=== PATIENT | female | born 1985 | race Caucasian/White ===

== ENCOUNTER 2021-05-31 08:07 | Emergency (ER) | payer OTHER, SELFPAY ==
[2021-05-31 08:08] VITALS: BP 132/98; PULSE 73; RESP 15; TEMP 35.7; O2SAT 100; BMI 48.4
--- NOTE | 2021-05-31 08:36 | EDS_ITS ---
HPI History of Present Illness Chief Complaint: Headache Informant: patient Narrative Narrative: Patient presents with migraine headache. She has a history of these. She has been on Botox injections every few months that have helped him quite a bit. Her frequency is down. Her last Botox injection was in March. She is coming up on repeat injection. She has had no trauma or injury. No fevers chills. She started with a migraine this morning. It is mostly in the back of the head more than the front. It is more on the right than the left. She did have some flashing lights in her vision prior to it. She is not having any weakness or numbness. She does have photophobia which is typical. She has had very mild nausea. She cannot think of anything that triggered this headache. However, she she has never figured out triggers for her headaches. [facility] Medical History Migraines Home Medications vit [id number] [ Vitamin Tablet] 1 ea PO DAILY 10/02/14 [History Last Taken Unknown] metformin 1,500 mg PO DAILY 10/20/14 [History Last Taken Unknown] ondansetron 4 mg PO Q6H PRN PRN #20 tab 10/20/14 [Rx Last Taken Unknown] Allergy/AdvReac Type Severity Reaction Status Date / Time [place] And Derivatives Allergy Rash Verified 05/31/21 08:09 Fish Containing Products Allergy Anaphylaxis Verified 05/31/21 08:09 ibuprofen Allergy Other Verified 05/31/21 08:09 hydromorphone HCl AdvReac Vomiting Verified 05/31/21 08:09 [From Dilaudid] metoclopramide HCl AdvReac Vomiting Verified 05/31/21 08:09 [From Reglan] Social History Smoking Status: Current every day smoker tobacco type: cigarettes ROS ROS ED Constitutional Constitutional ED: Denies chills or fever(s) Eyes Eyes: Denies blurry vision, change in vision or diplopia ENT ENT ED: Denies rhinorrhea or sore throat Cardiovascular Cardiovascular: Denies palpitations Respiratory/Chest Respiratory/Chest: Denies dyspnea Gastrointestinal Gastrointestinal: Reports nausea; Denies vomiting Genitourinary Genitourinary ED: Denies dysuria Musculoskeletal Musculoskeletal: Denies arthralgias or myalgias Integumentary Denies rash Neurologic Neurologic: Reports headache(s); Denies paresthesias or weakness Psychiatric Psychiatric: Denies anxiety or depression Endocrine Endocrinology: Denies polydipsia or polyuria Hematologic/Lymphatic Hematologic/Lymphatic: Denies easy bleeding or easy bruising Allergic/Immunologic Allergic/Immunologic ED: Denies mouth swelling or urticaria EXAM Physical Exam Const Vital Signs: 05/31/21 08:08 Temperature 96.3 F L Temperature Source Temporal Pulse Rate 73 Respiratory Rate 15 Blood Pressure 132/98 H Blood Pressure Mean 109 Pulse Ox 100 Oxygen Delivery Method Room Air Positive well nourished and well developed Constitutional Narrative: Patient looks calm and comfortable in the room. General Appearance ED: well developed and NAD; Negative for cyanotic or terry phoretic HEENT Reports normocephalic HEENT Narrative: No temporal artery tenderness. No sinus tenderness. No facial asymmetry. atraumatic Eyes PERRL and EOMs intact bilaterally Eyes Narrative: Very mild photophobia. Neck supple Resp normal respiratory effort and clear to auscultation bilaterally Cardio regular rate and regular rhythm GI non-tender Palpation: soft Back/Spine no CVA tenderness Extremity normal to inspection Neuro oriented x3 and no sensory deficits noted Neuro Narrative: Normal strength sensation and coordination throughout. Sensorium / Orientation: awake and alert; Negative for orientation impaired, lethargic or stuporous Motor Exam: strength 5/5 throughout Psych mental status grossly normal Skin Rashes: no rashes MDM MDM MDM Narrative Medical decision making narrative: Patient is rechecked. She was sleeping. She was aroused with voice. She states the headache is much better. She states delores t Benadryl usually works really well for her. We did use Compazine also as she does have some nausea. Both of her symptoms are markedly improved. We discussed reasons to return. Discharge Plan Triage Chief Complaint: Headache ED Provider: Huber Bishop Dx/Rx/DC Orders Clinical Impression: Migraine Instructions: ED, Migraine (Classical) Prescriptions: No Action Vitamin 1 EACH tablet 1 ea PO DAILY RF: 0 metformin 500 MG tablet 1,500 mg PO DAILY RF: 0 ondansetron 4 MG tablet 4 mg PO Q6H PRN PRN (Reason: Nausea) Qty: 20 RF: 0 Primary Care Provider: Care Physician,No Primary Referrals: Helder Recinos DO [STAFF PHYSICIAN] - As Needed Care Physician,No Primary [Primary Care Provider] - Disposition Disposition: Home, Self Care
[2021-05-31] MEDS: DiphenhydrAMINE 50 MG/ML Syringe IV (08:59)
[2021-05-31] MEDS: 0.9% Normal Saline 1,000 ML 999 ML IV (09:00)
[2021-05-31] MEDS: proCHLORPERazine 10 MG/2 ML Vial IV (09:00)
== END 2021-05-31 10:41 | disposition home or self-care (01) ==
PROVIDERS: Emergency Provider Emergency Medicine; Visit Provider Emergency Medicine
DX: G43.909 Migraine, unspecified, not intractable, without status migrainosus (principal); F17.210 Nicotine dependence, cigarettes, uncomplicated; Z79.899 Other long term (current) drug therapy; Z79.84 Long term (current) use of oral hypoglycemic drugs
CPT/HCPCS: 96361; 96374; 96375; 99283; J7030; A4216

== ENCOUNTER 2021-06-21 09:40 | Outpatient (CLI) | payer OTHER, SELFPAY ==
[2021-06-21 12:20] LABS: Absolute Lymphocyte Count 1.68 X10^3/uL (0.83-4.51); Absolute Neutrophil Count 3.8 X10^3/uL (2.0-7.7); Basophil# 0.05 X10^3/uL; Basophil% 0.8 % (0-1); Eosinophil# 0.11 X10^3/uL; Eosinophils% 1.8 % (0-5); Hematocrit 42.3 % (37-47); Hemoglobin 13.7 g/dL (12.0-15.0); Lymphocyte # 1.68 X10^3/ul (0.83-4.51); Lymphocyte % 28.1 % (19-41); Mean Corp Hgb Conc 32.4 g/dL (32-36); Mean Corpuscular Hgb 27.5 pg (27.0-32.0); Mean Corpuscular Volume 84.9 fL (81-99); Mean Platelet Vol. 10.3 fl (6.2-12.0); Monocyte# 0.32 X10^3/uL; Monocyte% 5.4 % (0-10); NRBC Flagged by Analyzer 0 % (0-5); Neutrophil % 63.6 % (47-70); Platelet Count 247 K/mm3 (150-450); RBC Distribution Width CV 14.3 % (11.6-14.6); RBC Distribution Width SD 44.1 fl (35.1-43.9); Red Blood Count 4.98 M/mm3 (4.2-5.4)
[2021-06-21 12:38] LABS: Vitamin D,25 Hydroxy 12.8 ng/mL
[2021-06-21 13:11] LABS: ALB/GLOB Ratio 0.9 RATIO (0.9-2.4); AST(SGOT) 12 U/L (15-37); Alanine Aminotransfer ALT/SGPT 38 U/L (13-56); Albumin, Serum 3.5 g/dL (3.2-5.0); Alkaline Phosphatase 72 U/L (45-117); Anion Gap 4 (5-15); BUN 10 mg/dL (7-18); BUN/Creat Ratio 14.1 RATIO (10-20); Calcium,Total 9.4 mg/dL (8.5-10.1); Chloride 107 mmol/L (98-107); Cholesterol 142 mg/dL (200); Creatinine, Serum 0.71 mg/dL (0.55-1.02); EST Glomerular Filtration Rate 98 mL/min (>60); Est Glom Filt Rate - Afr Amer 119 mL/min (>60); Free T3 2.8 pg/mL (2.18-3.98); Globulin 3.8 g/dL (2.2-4.2); Glucose 98 mg/dL (74-106); High Density Lipoprotein 43 mg/dL; Potassium 4.1 mmol/L (3.5-5.1); Protein, Total 7.3 g/dL (6.4-8.2); Sodium Level 139 mmol/L (136-145); T4 Free Direct 1.07 ng/dL (0.76-1.46); Triglycerides 75 mg/dL; Very Low Density Lipoprotein 15 mg/dL (5-40)
== END 2021-06-21 23:59 | disposition home or self-care (01) ==
LOC: BIMLAB 09:41
PROVIDERS: PCP Internal Medicine; Referring Provider Internal Medicine; Visit Provider Internal Medicine
DX: M54.9 Dorsalgia, unspecified (principal); G89.29 Other chronic pain; G43.109 Migraine with aura, not intractable, without status migrainosus; E28.2 Polycystic ovarian syndrome; F41.9 Anxiety disorder, unspecified; F32.A Depression, unspecified
CPT/HCPCS: 36415; 80053; 80061; 82306; 83036; 84439; 84443; 84481; 85025

== ENCOUNTER 2021-07-26 09:20 | Emergency (ER) | payer OTHER, MEDICAID, SELFPAY ==
[2021-07-26 09:21] VITALS: BP 132/74; PULSE 67; RESP 16; TEMP 36.4; O2SAT 100; BMI 51.5
--- NOTE | 2021-07-26 09:26 | RAD_ITS ---
STUDY: X-RAY - PELVIS AND RIGHT HIP REASON FOR EXAM: Right hip pain, right hip gave out while walking, bilateral hip dysplasia. TECHNIQUE: 2 views of the pelvis and hip. COMPARISON: None. FINDINGS: There are surgical clips in the pelvis. Normal bilateral iliac wings, sacroiliac joints and visualized sacrum. Normal bilateral superior and inferior pubic rami. Normal pubic symphysis. Normal bilateral ischial tuberosities. There is uncovering of the right hip consistent with hip dysplasia. There is joint space narrowing of the superior lateral right hip. There is also hip dysplasia of the contralateral left hip. RAD/HIP, UNI W/ Pelvis 2-3 Views IMPRESSION: Right hip dysplasia with joint space narrowing of the right hip. Electronically Signed: Suresh Granados MD at 10:23 EDT ,
--- NOTE | 2021-07-26 09:27 | ED.VIS.LOWEX ---
HPI History of Present Illness Chief Complaint: Lower Extremity Injury Narrative Narrative: Patient presents via EMS with right hip pain after fall. 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 Her dysplasias severe where she applied for disability last year. Today, while she states she is always had leg weakness, she fell and was not able to get up. She complains of right hip pain. She denies hitting her head or loss of consciousness or other injury. Her family was at home and called EMS because of her inability to get up. She complains of pain in the right hip that radiates downward, along with minor paresthesia of the right lower extremity. She does not take blood thinners. She fell onto hardwood floor today. PFSH PFS Medical History Chronic back pain Degenerative disc disease Depression with anxiety GI problem H/O tinnitus Hearing problem History of gestational diabetes History of pre-eclampsia Migraines Scoliosis Home Medications medical canabis PO 06/21/21 [History Last Taken Unknown] Allergy/AdvReac Type Severity Reaction Status Date / Time [place] And Derivatives Allergy Rash Verified 07/26/21 09:28 Fish Containing Products Allergy Anaphylaxis Verified 07/26/21 09:28 ibuprofen Allergy Other Verified 07/26/21 09:28 hydromorphone HCl AdvReac Vomiting Verified 07/26/21 09:28 [From Dilaudid] metoclopramide HCl AdvReac Vomiting Verified 07/26/21 09:28 [From Reglan] Family History Other Alcoholism Asthma CVA (cerebral vascular accident) Depression Hyperlipemia Hypertension Thyroid disorder Surgical History History of History of cholecystectomy History of mastoidectomy History of placement of ear tubes History of tonsillectomy and adenoidectomy History of tubal ligation Social History Smoking Status: Current every day smoker tobacco type: cigarettes Tobacco: How many years used: 15 alcohol intake: current alcohol intake frequency: holidays/special occasions only substance use type: does not use what type of physical activity do you participate in: walking frequency: 5-6 times per week ROS ROS ED ROS Narrative Constitutional: No fever, no chills. HEENT: No sore throat. No neck pain. No loss of vision. No rhinorrhea. Cardiovascular: No chest pain. No palpitations. No pedal edema. Respiratory: No cough, no shortness of breath. Abdominal: No abdominal pain. No nausea. No vomiting. Genitourinary: No dysuria. No hematuria. Musculoskeletal: No myalgias. Right hip pain Neurologic: No headaches. No dizziness. No lightheadedness. Paresthesias right hip radiating downward. Skin: No rash. No change in color. Psychiatric: No depression. No anxiety. EXAM Physical Exam Narrative Exam Narrative: Afebrile. Vital signs noted. HEENT: Normocephalic. Atraumatic. PERRL, EOMI. Neck soft and supple. No point tenderness or step off. Cardiovascular: Regular rate and rhythm. No murmurs, rubs, or gallops appreciated. Respiratory: No tachypnea. Lungs clear to auscultation bilaterally. Gastrointestinal: Abdomen soft, obese, Nontender, with normoactive bowel sounds. No rebound or guarding. Neurological: Awake. Alert. Nonfocal, nonlateralizing. Skin: No rash. Normal color. No pallor. Musculoskeletal: No pedal edema. Pelvis stable. Diffuse tenderness to palpation right hip. Mild pain with logrolling. Neurovascular intact distally with EHL intact. Palpable dorsalis pedis pulse. Positive flexion and extension mechanisms of right knee. Range of motion right lower extremity limited secondary to pain. Const Vital Signs: 07/26/21 09:21 07/26/21 11:25 Temperature 97.5 F L Temperature Source Temporal Pulse Rate 67 75 Respiratory Rate 16 18 Blood Pressure 132/74 H Blood Pressure Mean 93 Pulse Ox 100 98 Oxygen Delivery Method Room Air MDM MDM MDM Narrative Medical decision making narrative: While patient states she has allergies to hydromorphone and ibuprofen, she states she usually can tolerate morphine injection when I really need it. She was administered morphine 4 mg intramuscularly and right hip x-rays including pelvis were obtained. X-rays interpreted by myself show no evidence of a fracture, no pelvic or hip fracture noted. Radiology confirms this. They do comment on joint space narrowing consistent with her right hip dysplasia. At this point in time, I do feel she can be discharged safely home with follow-up. She states that she is supposed to have surgery this year on her right hip regarding her dysplasia. Return instructions to the emergency department were reviewed. Disposition is discharged home in stable condition. Radiography Diagnostic Testing: Clinical Impression(s) from Imaging Studies Hip/Pelvis X-Ray 07/26/21 09:26 IMPRESSION: Right hip dysplasia with joint space narrowing of the right hip. 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 Follow-up with your orthopedic surgeon regarding her hip dysplasia. Disposition Disposition: Home, Self Care Discharge Date/Time: 07/26/21 11:26
[2021-07-26] MEDS: Morphine 4 MG/ML Syringe IM (09:34)
[2021-07-26 11:25] VITALS: PULSE 75; RESP 18; O2SAT 98
== END 2021-07-26 11:26 | disposition home or self-care (01) ==
PROVIDERS: Emergency Provider Emergency Medicine; PCP Internal Medicine; Visit Provider Emergency Medicine
DX: S70.01XA Contusion of right hip, initial encounter (principal); F17.210 Nicotine dependence, cigarettes, uncomplicated; M16.11 Unilateral primary osteoarthritis, right hip; W19.XXXA Unspecified fall, initial encounter; G89.29 Other chronic pain; G43.909 Migraine, unspecified, not intractable, without status migrainosus; Y93.9 Activity, unspecified; Y99.9 Unspecified external cause status; Y92.009 Unspecified place in unspecified non-institutional (private) residence as the place of occurrence of the external cause; M41.9 Scoliosis, unspecified; Q65.89 Other specified congenital deformities of hip
CPT/HCPCS: 73502; 96374; 99284; J7030

== ENCOUNTER 2021-09-16 09:26 | Outpatient (RCR) | payer MEDICAID, SELFPAY ==
--- NOTE | 2021-09-30 08:42 | HP.OTFCE_ITS ---
Floor (Occasional 1-33% of Day): 30# Floor (Frequent 34-66% of Day): 15# Floor (Constant 67-100% of Day): NA Floor PDL: Light Knee (Occasional 1-33% of Day): 35# Knee (Frequent 34-66% of Day): 18# Knee (Constant 67-100% of Day): 7# Knee PDL: Light-Medium Waist (Occasional 1-33% of Day): 35 Waist (Frequent 34-66% of Day): 18# Waist (Constant 67-100% of Day): 7# Waist PDL: Light-Medium Shoulder (Occasional 1-33% of Day): 30 Shoulder (Frequent 34-66% of Day): 15 Shoulder (Constant 67-100% of Day): NA Shoulder PDL: Light Overhead (Occasional 1-33% of Day): 10 Overhead (Frequent 34-66% of Day): NA Overhead (Constant 67-100% of Day): NA Overhead PDL: Sedentary Comments: pt demo a LIGHT PHYSICAL DEMAND LEVEL FOR LIFTING AT FLOOR AND SHOLDER LEVELS. A LIGHT- MEDIUM PHYSICAL DEMAND LEVEL FOR LIFTING AT KNEE AND WAIST LEVELS. A SEDENTARY PHYSICAL DEMAND LEVEL FOR OVERHEAD LIFTING Bending: Occasional Ability (1-33% of day) Squatting: Occasional Ability (1-33% of day) Comments: with external support Kneeling: No Ablility (0% of day) Comments: poor mechanics and strength to perform safely Reaching out: Frequent Ability (34-66% of day) Comments: while sitting Reaching up: Frequent Ability (34-66% of day) Comments: while sitting Sitting: Frequent Ability (34-66% of day) Comments: in wide chair to accommodate pts size Walking: Occasional Ability (1-33% of day) Standing: Occasional Ability (1-33% of day) Duration Sedentary Sedentary Light Light Light Medium Medium Medium Heavy Very Heavy Heavy Occasional (0-33% of day) Frequent (34-66% of day) Constant (67-100% of day) 10 # Negligible Negligible 15 # 8 # Negligible 20 # 10# Negli. 35 # 18 # 7 # 50 # 25 # 10 # 75 # 100 # >100 # 38 # 50 # >50 # 15 # 20 # >20 # Weight:: 136.078 kg Hand Dominance: Left Medical History Including Restrictions: pt arrives for FCE because she has active disability application - pt states she initiated that application in Mach t states she did see a ortho as a child for her scoliosis states she did wear bracing for 5-6 years - but never had to have corrective sx. Pt states she was in fair health until July of 2020 in her right hip- and her ability decreased from there (Pt states she has never been in fair or good health). Pt states she has bilateral hip dysplasia and scoliosis pt states she seen a Physician assistance at [facility] -. pt states she has depression/anxiety -. Pt states she started smoking about the age of 14 and smoked on and off until about 2 months ago. Pt states she drinks alcohol socially- holidays- special occasions-. pt states no has put her lifting restrictions - No Lifting restrictions. pt arrives after Physical Therapy about 10 sessions recently and will continue with Physical therapy Diagnoses: bilateral hip dysplasia. scoliosis. Depression dx as a child mtg with Wellbutrin Sees counseling 1x every 2 weeks-. Anxiety 2011/or 2012 mtg with Wellbutrin and therapy ([facility] counseling services) Symptoms: Pt states she is in a lot of pain pt has CBD and THC 1/1 combination - states this helps a lot- takes Tylenol on occasion. pt is allergic to Ibuprofen. pt states pain is right hip pain. Pain in low back. Epsen salt baths Pain: Pt states she is sitting at pain level is about 8/10 states she arrived and her pain was 6/10 -. pt states she is out of her CBD and THC 1/1 ratio - and states she has not used it in last 3 weeks due to weiss of gasoline- Work History: Pt states she worked at [employer] - pt states she worked there 2020- May 2021- pt states she worked 8 hour days with an hour for lunch- pt worked 5 days a week. 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 pt states she has difficulty sitting. pt states she was required to lift boxes but pt states she does not recall a lifting requirement. 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 Behavioral: pt was cooperative throughout assessment. ADLS: Pt lives with her , Nephew 19, and her 6 and 4 year old children- pt states she lives in a 2 story home- with 3 entry with two hand rails. ( works 10 hour shift / 2nd shift) Pt states she has assist from her nephew with dishes/trash- children warehouse picker after themselves- does laundry- pt states at times she folds it- pt states she out sources grocery shopping- pt states she can not go to the store- pt states she can cook sometime- pt states she is trying to teach her 6 year old to make light meals- will cook larger meals prior to going to work- pt does drive. pt states her nephew does the yard work. Pt states her bedroom is on second floor but she sleep down stairs on a sleeper couch- pt states bed frame broke and so she cant get up from mattress so she sleeps down stairs- also states stairs are hard for her- pt states full flight of stairs- Pt states she has half bath on first floor-. full bath on 2nd floor- has tub shower- pt states she can shower IND. Physical Examination: pt heart rate 69 while sitting ROM: pt demo ROM WFL adipose tissue limiting full ROM Strength: right shoulder flex peak force 14# left 19#. right tricep 20# left 19#. right bicep 25# left 28#. right hip flex 34# left 33#. right quad 27# left 27.9. right hamstring 29# left 27#. pt demo with functional strength Right Pinking Sewing Machine Operator Strength Average: 53.33 Right Pinking Sewing Machine Operator Strength Percentile: 9% Left Pinking Sewing Machine Operator Strength Average: 60.00 Left Pinking Sewing Machine Operator Strength Percentile: 34% Right Lateral Pinch Average: 12.00 Right Lateral Pinch Percentile: 25% Left Lateral Pinch Average: 11.33 Left Lateral Pinch Percentile: 25% Right Tripod Pinch Average: 11.33 Right Tripod Pinch Percentile: 25% Left Tripod Pinch Average: 10.00 Left Tripod Pinch Percentile: 10% Sensation: denies Fine Motor: 9 hole peg testing. right 22 sec placing pt in the 10%. left 19 sec placing pt in the 50%. pt can use hand/fingers on frequent ability Balance: no loss of balanced was noted during assesment Bending: pt demo the ability to bend forward 3/3x , 10/10x and 10/10x rapidly. pts heart rate 101. ater hear rate 74. pt can bend forward on occasional ability Squatting: pt demo squatting 3/3x and 10/10 with external support. pt can squat on occastional ability. heart rate 86. back 5-610 Kneeling: pt demo poor ability to kneel x 1 with external support. no ability Reaching out/up: pt demo the ability to reach up/out 3/3x, 10/10x and 10/10x rapidly. pt completed while sitting. pt can reach up/out on a frequent ability- Walking: pt ambulated 7 min with antalgic gait pattern. pt request to stop due to back and hip pain 11/09. pt can ambulate on occasional ability Standing: pt demo the ability to stand for 6 min with shifting body weight- pt can stand on occasional ability Sitting: pt demo the ability to sit for 50 min with noted facial grimace indicating discomfort- chair was small and handles of chair did push into her hips- pt can sit on a frequent ability in larger chair- Climbing Stairs: pt ascended and descended 10 steps with use of bilateral hand rails pt ascends with single leg step up and single leg step down. Floor Lift: pt demo the ability to lift 30# maximally from floor level - with fair lifting mechanics- narrow base of support Knee Lift: pt demo the ability to lift 35# maximally from knee level -with fair lifting mechanics- narrow base of support Waist Lift: pt demo the ability to lift 35# maximally from knee level -with fair lifting mechanics- narrow base of support Shoulder Lift: pt demo the ability to lift 30# maximally from knee level -with fair lifting mechanics- narrow base of support Overhead Lift: pt demo the ability to lift 10# maximally from knee level -with fair lifting mechanics- Carrying: pt demo the ability to carry 15# for 30 feet with poor body mechanics but fair ability Comments: following tasks pt did report increase pain of back and hips 10/09
--- NOTE | 2021-09-30 08:42 | HP.OTFCE.D ---
FCE D/C Summary - Discharge SATURNINO TOLENTINO was seen for a one time visit for an FCE on 09/16/21 and is discharged.
== END 2021-09-16 19:00 | disposition home or self-care (01) ==
LOC: OT 09:26
PROVIDERS: PCP Internal Medicine; Referring Provider Internal Medicine; Visit Provider Internal Medicine
DX: M54.9 Dorsalgia, unspecified (principal); G89.29 Other chronic pain; Z87.76 Personal history of (corrected) congenital malformations of integument, limbs and musculoskeletal system
CPT/HCPCS: 97750

== ENCOUNTER 2021-09-17 21:47 | Emergency (ER) | payer MEDICAID, SELFPAY ==
[2021-09-17 21:48] VITALS: BP 132/90; PULSE 72; RESP 16; TEMP 36.2; O2SAT 99; BMI 45.1
--- NOTE | 2021-09-17 22:14 | EDS_ITS ---
HPI History of Present Illness HPI Narrative: Patient presents to the last ration to her left index finger that occurred earlier today. Patient states she was using a kitchen knife while she was gardening. Patient states she accidentally stabbed her left index finger was caught while trying to cut something. Patient admits to some tingling in the tip of her left index finger. Patient denies any weakness. Patient states her pain is aching and is worse with movement. Patient states nothing seems to help with her pain. Patient states her last tetanus was between 5 and 10 years ago. Chief Complaint: Laceration Informant: patient Occured/Mechanism Mechanism/Context: Yes stab wound Onset/Context/Timing Onset: Today Context: Sudden Onset Timing: Continuous Quality of Pain: Aching Location: Left index finger Worsened by: Movement Relieved by: Nothing Associated Symptoms Associated Symptoms: Positive for Parasthesia; Negative for Weakness or Loss of Funtion Narrative Tetanus Immunization: 5-10 years PFSH PFSH Medical History Chronic back pain Degenerative disc disease Depression with anxiety GI problem H/O tinnitus Hearing problem History of gestational diabetes History of pre-eclampsia Migraines Scoliosis Home Medications medical canabis PO 06/21/21 [History Last Taken Unknown] amoxicillin 875 mg tablet 875 mg PO Q12H #20 tabs 09/11/21 [Rx Last Taken Unknown] Allergy/AdvReac Type Severity Reaction Status Date / Time [place] And Derivatives Allergy Rash Verified 08/03/21 08:39 Fish Containing Products Allergy Anaphylaxis Verified 08/03/21 08:39 ibuprofen Allergy Other Verified 08/03/21 08:39 hydromorphone HCl AdvReac Vomiting Verified 08/03/21 08:39 [From Dilaudid] metoclopramide HCl AdvReac Vomiting Verified 08/03/21 08:39 [From Reglan] Family History Other Alcoholism Asthma CVA (cerebral vascular accident) Depression Hyperlipemia Hypertension Thyroid disorder Surgical History History of History of cholecystectomy History of mastoidectomy History of placement of ear tubes History of tonsillectomy and adenoidectomy History of tubal ligation Social History Smoking Status: Former smoker Tobacco: How many years used: 15 alcohol intake: current alcohol intake frequency: holidays/special occasions only substance use type: does not use what type of physical activity do you participate in: walking frequency: 5-6 times per week ROS ROS ED Constitutional Constitutional ED: Denies chills or fever(s) Eyes Eyes: Denies blurry vision or change in vision ENT ENT ED: Denies rhinorrhea or sore throat Cardiovascular Cardiovascular: Denies chest pain or palpitations Respiratory/Chest Respiratory/Chest: Denies cough or dyspnea Gastrointestinal Gastrointestinal: Denies nausea or vomiting Genitourinary Genitourinary ED: Denies dysuria or hematuria Musculoskeletal Musculoskeletal: Denies back pain or neck pain Integumentary Denies abscess or rash Neurologic Neurologic: Denies headache(s) or weakness Allergic/Immunologic Allergic/Immunologic ED: Denies mouth swelling or urticaria EXAM Physical Exam Const Vital Signs: 09/17/21 21:48 Temperature 97.2 F L Temperature Source Temporal Pulse Rate 72 Respiratory Rate 16 Blood Pressure 132/90 H Blood Pressure Mean 104 Pulse Ox 99 Oxygen Delivery Method Room Air Positive well nourished, well developed and obese General Appearance ED: well developed Nutritional Appearance: obese HEENT Reports moist mucous membranes Neck full ROM Extremity Extremity Narrative: There is a 5 mm linear laceration over the radial aspect of the middle phalanx of the left index finger. There is no gapping of the wound margins. There are no foreign bodies. There is no active bleeding. Strength is 5/5 in flexion and extension of the MP, PIP, and DIP joints. Sensation was slightly diminished to light touch on the radial aspect of the left index finger distal to the laceration. Sensation was otherwise intact to light touch in all digits. Capillary refill was less than 2 seconds in all digits. Neuro oriented x3, CN's II-XII intact bilaterally, moves all extremities and no focal motor deficits Sensorium / Orientation: alert Psych mental status grossly normal MDM MDM MDM Narrative Medical decision making narrative: X-rays of the left index finger were obtained. There are 3 views. On my interpretation, there is no acute fracture or dislocation. There is diffuse soft tissue swelling. Radiologist also interpreted the x-rays and agrees. Patient was advised of her findings. Patient is currently on amoxicillin. Patient was instructed to continue this as prescribed. Patient was instructed to keep the wound clean and dry. Patient was instructed to take Tylenol as needed for pain. Patient was instructed to follow-up with her primary care physician in 3 to 5 days for wound recheck. Patient understood and was agreeable with the plan. All questions were answered. Discharge Plan Triage Chief Complaint: Laceration ED Provider: Prabhu Albarran Dx/Rx/DC Orders Clinical Impression: Puncture wound of left index finger, Morbid obesity with BMI of 45.0-49.9, adult Instructions: ED Puncture Wound (General) Prescriptions: No Action medical canabis PO amoxicillin 875 mg tablet 875 mg PO Q12H Qty: 20 0RF Primary Care Provider: Iza Douglas Referrals: Iza Douglas MD [Primary Care Provider] - 3-5 Days Disposition Disposition: Home, Self Care
--- NOTE | 2021-09-17 22:28 | RAD_ITS ---
STUDY: X-RAY - LEFT HAND, ATTENTION SECOND FINGER REASON FOR EXAM: Female, 36 years old. Injury/Pain TECHNIQUE: 3 view(s) of the finger were obtained. COMPARISON: None. FINDINGS: Normal metacarpal head. Normal metacarpophalangeal joint. Normal proximal phalanx. Normal middle phalanx. Normal distal phalanx. Normal proximal interphalangeal joint. Normal distal interphalangeal joint. Diffuse soft tissue swelling of the second digit. RAD/Finger(s) Min 2 Views IMPRESSION: Soft tissue swelling without demonstrated fracture. Electronically Signed: Hao Powell MD ([place]) at 22:42 EDT ,
[2021-09-17 23:01] VITALS: RESP 18
== END 2021-09-17 23:02 | disposition home or self-care (01) ==
PROVIDERS: Emergency Provider Emergency Medicine; PCP Internal Medicine; Visit Provider Emergency Medicine
DX: S61.231A Puncture wound without foreign body of left index finger without damage to nail, initial encounter (principal); E66.01 Morbid (severe) obesity due to excess calories; Z68.42 Body mass index [BMI] 45.0-49.9, adult; Y93.H2 Activity, gardening and landscaping; Z87.891 Personal history of nicotine dependence
CPT/HCPCS: 73140; 99282

== ENCOUNTER 2021-09-27 09:30 | Outpatient (RCR) | payer MEDICAID, OTHER, SELFPAY ==
--- NOTE | 2021-08-05 10:31 | HP.PTEVAL_ITS ---
Patient's Visit Information SATURNINO TOLENTINO is a 36 year old F referred to Physical Therapy by Dr. Iza Douglas MD with a diagnosis of CORRECTED CONGENITAL MALFORMATIONS, DORSALGIA. Date of Evaluation: 08/05/21 Physical Therapist: Darlin Carlisle PT, Cert MDT - Visit Plan Frequency: 2-3x /Week Duration: 4-6 Weeks Plan: AQUATIC THERAPY FOR PAIN RELIEF, GAIT TRAINING, POSTURE CORRECTION/STRENGTHENING, INSTRUCTION IN APPROPRIATE BODY MECHANICS AND ACTIVITY MODIFICATIONS. DLS STARTING WITH A NEUTRAL SPINE PROGRESSING ROM TOLERATED. VERITO LE ROM, STRETCHING AND STRENGTHENING. HEP INSTRUCTION. - Subjective Work/Leisure: UNEMPLOYEED SINCE MAY 2021 DUE TO LB AND RIGHT HIP PAIN. Disability: APPLIES. Present symptoms: CONSTAND LOW BACK AND RIGHT HIP PAIN. INTERMITTENT RIGHT LE PAIN, NUMBNESS AND TINGLING. RARE LLE SX'S. Present since: CHRONIC - CONGENITAL. Pain Scale: WORST 9/10, LEAST 5/10. Currently: 5/10. Commenced as a result of: CONGENITAL. Worse: SITTING, STANDING, WALKING, LIFTING RIGHT LE. Better: ELEVATING LEGS. Disturbed sleep: YES. Previous history/Previous treatment: HAS MANAGED WITH PHYSICAL THERAPY AND CHIROPRACTIC. NO BACK OR HIP SX. ONE WILDER WITHOUT BENEFIT LAST YEAR IN [place]. ORTHO CONSULT WED 08/03/21 AND RECOMMEND TO AVOID SX ON HIP LONG POSSIBLE AND PROCEED WITH PT PER PATIENT REPORT. Coughing/sneezing/straining: POSITIVE. Gait: PAINFUL AND CONSTANT LIMP R LE. NO AD. Difficulty initiating urination: NO. Bowel or Bladder Dysfunction: NO. 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 FALL LAST WEEK WHEN RIGHT LE GAVE OUT AT HOME AND COULDN'T GET UP. [facility]AD CAME AND TOOK HER ED. SHE DENIES INJURY. Unexplained weight loss: NO. Imaging: DEGENERATIVE CHANGES OF BACK AND HIP. PMH/Recent major surgery: Chronic back pain. Degenerative disc disease. Depression with anxiety. GI problem. H/O tinnitus. Hearing problem. History of gestational diabetes. History of pre- eclampsia. Migraines. Scoliosis. History of . History of cholecystectomy. History of mastoidectomy. History of placement of ear tubes. History of tonsillectomy and adenoidectomy. History of tubal ligation - Objective Sitting/Standing Posture: POOR. SCOLIOSIS. INCREASED TRUNK FLEXION. Active Correction of posture: NE. ONLY ABLE TO PARTIALLY CORRECT. Other Observations: INDEP GAIT INTO PT WITHOUT ANY ASSISTIVE DEVICES OR LOB BUT GAIT IS SLOW AND ANTALGIC WITH A MILD LIMP ON THE RIGHT LE, INCREASED TRUNK FLEXION AND DECREASED VERITO STRIDE LENGTH. Sensory deficit: VERITO LE LIGHT TOUCH SENSATION IS GROSSLY INTACT AND SYMMETRICAL. PATIENT REPORTS HAVING A NCT ABOUT A YEAR AGO AND IT WAS NORMAL. ROM deficit: TIGHT VERITO HIP FLEXORS, HS'S AND GASTROC SOLEUS COMPLEX'S. PAINFUL AND 50% ROM LIMITATION INTO R HIP IR/ER COMPARED TO LEFT. Motor deficit: LLE 5/5. RIGHT LE: HIP 3/5, KNEE 4-/5, ANKLE 5/5. Dural Signs: NEGATIVE VERITO LE'S. Lumbar mvmt loss: flex - MOD. ext - KEISHA. R SG - KEISHA. L SG - MOD. PATIENT C/O INCREASED LOW BACK AND HIP PAIN WITH LUMBAR ROM TESTING ALL PLANES. Core strength: POOR. Palpation: GAIT TRAINING. GAIT TRAINING WITH STRAIGHT CANE ON LEVEL SURFACES AND UP AND DOWN STEPS WITH HR, CANE AND STEP TO PATTERN. - Balance/Special Test Scores Oswestry Low Back Score: 38 - Goals Goal 1:: DECREASE C/O LOW BACK PAIN, R HIP PAIN AND RIGHT LE SX'S. Goal Time Frame: 4-6 Weeks Goal 2:: IMPROVE PERSONAL CARE, LIFTING, WALKING, SITTING, STANDING, SLEEP, SOCIAL LIFE, TRAVEL, AND EMPLYMENT/HOMEMAKING FUNCTION. Goal Time Frame: 4-6 Weeks Goal 3:: INSTRUCT IN PROPHYLAXIS Goal Time Frame: 4-6 Weeks - Anticipated Interventions Patient/Client Instruction: Educate patient on: Condition, Plan of Care, Risk Factors For the Purpose of:: To improve self management Therapeutic Exercise to Include: Strength training, Body mechanics, Postural training, Flexibilty training, Gait and locomotor training, Neuromotor development, In an aquatic setting, Dynamic Lumbar Stabilization, Scapular Strength/Stabilization For the Purpose of:: To decrease pain, To improve muscle performance and motor function, To increase tolerance to activity/condition/position, To improve ability of physical actions for home/community/work/leisure, To improve gait and locomotor functions Thank you for the opportunity to evaluate your patient. For Medicare and Medicare HMO plans, please review the plan of care and approve it. It will need to be FAXED BACK to us at [phone] for Medicare purposes. For Medicare only, by signing this I certify the plan of care. Please let me know if there are questions or concerns regarding this plan of care. Physician Signature: Date:
--- NOTE | 2021-09-05 09:57 | HP.PTREVAL ---
Dr. Iza Douglas MD, It has been my pleasure to treat SATURNINO TOLENTINO over the last 8 visits for CORRECTED CONGENITAL MALFORMATIONS, DORSALGIA. Please see the progress note below for an update on the physical therapy plan of care! Subjective: MY PAIN HAS DEFINATELY IMPROVED. I CAN STAND UP LONGER AND WALK A LITTLE FUTHER. PATIENT REPORTS SHE STILL NEEDS HER CANE FOR LONG DISTANCES. PATIENT DENIES ANY FALLS SINCE STARTING AQUATIC THERAPY. Objective/Function: PATIENT WAS SEEN TODAY FOR RE-ASSESSMENT OF PROGRESS TOWARD THE SET PT GOALS AND THE NEED FOR FURTHER PHYSICAL THERAPY VS READINESS FOR DISCHARGE. UPON EXAM TODAY THERE ARE NO SIGNIFICANT CHANGES EXCEPT R LE STRENGTH HAS IMPROVED AND RIGHT HIP AND KNEE NOW GRADED 4/5 WITH MMT'ING. PATIENT IS A GOOD CANDIDATE TO CONTINUE AQUATIC THERAPY BASED ON PROGRESS MADE AND ROOM FOR FURHTER IMPROVEMENT. PATIENT IS AGREEABLE. Plan Plan: *Add lunges next. *f/u with new HEP tasks. AQUATIC THERAPY FOR PAIN RELIEF, GAIT TRAINING, POSTURE CORRECTION/STRENGTHENING, INSTRUCTION IN APPROPRIATE BODY MECHANICS AND ACTIVITY MODIFICATIONS. DLS STARTING WITH A NEUTRAL SPINE PROGRESSING ROM TOLERATED. VERITO LE ROM, STRETCHING AND STRENGTHENING. HEP INSTRUCTION. Balance/Gait/Functional tests - Balance/Special Test Scores Oswestry Low Back Score: 31 Goals Goal 1:: DECREASE C/O LOW BACK PAIN, R HIP PAIN AND RIGHT LE SX'S. Goal Time Frame: 4-6 Weeks Goal Progress: Progressing Goal 2:: IMPROVE PERSONAL CARE, LIFTING, WALKING, SITTING, STANDING, SLEEP, SOCIAL LIFE, TRAVEL, AND EMPLYMENT/HOMEMAKING FUNCTION. Goal Time Frame: 4-6 Weeks Goal Progress: Progressing Goal 3:: INSTRUCT IN PROPHYLAXIS Goal Time Frame: 4-6 Weeks Goal Progress: Progressing Anticipated Interventions Patient/Client Instruction: Educate patient on: Condition, Plan of Care, Risk Factors For the Purpose of:: To improve self management Therapeutic Exercise to Include: Strength training, Body mechanics, Postural training, Flexibilty training, Gait and locomotor training, Neuromotor development, In an aquatic setting, Dynamic Lumbar Stabilization, Scapular Strength/Stabilization For the Purpose of:: To decrease pain, To improve muscle performance and motor function, To increase tolerance to activity/condition/position, To improve ability of physical actions for home/community/work/leisure, To improve gait and locomotor functions Please do not hesitate to contact me at [phone] by phone or if you have questions or concerns regarding this new plan of care! Sincerely, Darlin Carlisle, PT, Cert MDT
--- NOTE | 2021-10-07 10:58 | HP.PT.NRP ---
SATURNINO TOLENTINO was seen in my office for initial evaluation on 08/05/21. The following Plan of Care was established for this patient: Initial Frequency: 2-3x /Week Initial Duration: 4-6 Weeks Patient/Client Instruction: Educate patient on: Condition, Plan of Care, Risk Factors For the Purpose of:: To improve self management Therapeutic Exercise to Include: Strength training, Body mechanics, Postural training, Flexibilty training, Gait and locomotor training, Neuromotor development, In an aquatic setting, Dynamic Lumbar Stabilization, Scapular Strength/Stabilization For the Purpose of:: To decrease pain, To improve muscle performance and motor function, To increase tolerance to activity/condition/position, To improve ability of physical actions for home/community/work/leisure, To improve gait and locomotor functions This patient was last seen in our office . Pertinent comments regarding their Physical therapy will appear below: This patient has not returned to Physical Therapy and is appropriate to return to MD for further follow-up as needed. At this point I will be discontinuing this patient from physical therapy. I would be happy to see this patient again in the future if found appropriate by the physician. Thank you! Darlin Carlisle, PT, Cert MDT Balance/Gait/Functional tests - Balance/Special Test Scores Oswestry Low Back Score: 31
== END 2021-09-27 19:00 | disposition home or self-care (01) ==
LOC: PT 09:30
PROVIDERS: PCP Internal Medicine; Referring Provider Internal Medicine; Visit Provider Internal Medicine
DX: M54.9 Dorsalgia, unspecified (principal); G89.29 Other chronic pain; Z87.76 Personal history of (corrected) congenital malformations of integument, limbs and musculoskeletal system
CPT/HCPCS: 97113; 97116; 97162; 97164

== ENCOUNTER → 2021-11-17 | Outpatient (CLI) | payer MEDICAID, SELFPAY ==
--- NOTE | 2021-11-17 14:59 | BI_ITS ---
MAMMOGRAPHY - BILATERAL DIAGNOSTIC REASON FOR EXAM: Female, 36 years old. Right breast lumps. PERTINENT HISTORY: Grandmother with breast cancer. TECHNIQUE: Digital bilateral breast jimbo (3D mammographic acquisition) in the CC and MLO projections. 2-D mediolateral oblique (MLO) and craniocaudad (CC) views of both breasts were obtained. CAD: Full Field Digital Mammography with Computer Added Detection was performed. COMPARISON: None. Baseline examination. FINDINGS: Breast Composition: There are scattered areas of fibroglandular density. There are no dominant masses or suspicious calcifications. No other significant abnormalities are identified. BI/DIAG MAMM W/CAD, BILAT IMPRESSION: Negative diagnostic mammogram. With the patient''s history of bilateral palpable lumps in the right breast, targeted ultrasound correlation is recommended. ASSESSMENT CATEGORY: BIRADS Category 0: Incomplete. Need additional imaging evaluation. A letter regarding these results will be sent to the patient by the facility within 30 days. Approximately 10% of breast cancers are not detected by mammography. A normal mammogram should not delay biopsy of a clinically suspicious abnormality. Electronically Signed: Kimo Alfred MD at 15:35 EDT ,
--- NOTE | 2021-11-17 15:30 | US_ITS ---
STUDY: ULTRASOUND BREAST - RIGHT REASON FOR EXAM: Female, 36 years old. Right breast lumps. TECHNIQUE: Axial and longitudinal images of the RIGHT breast were performed with a high resolution ultrasound transducer. # OF IMAGES: 73 COMPARISON: Comparison is made with prior mammogram done earlier in the day. FINDINGS: RIGHT Breast: The entire right breast was examined by ultrasound. There is evidence of fibroglandular tissue. No solid or cystic masses seen. US/Breast Limited Unilateral IMPRESSION: Unremarkable ultrasound examination. Clinical follow-up recommended. ASSESSMENT CATEGORY: BIRADS Category 1: Negative. A letter regarding these results will be sent to the patient by the facility within 30 days. Electronically Signed: Kimo Alfred MD at 8:27 EDT ,
== END | disposition home or self-care (01) ==
LOC: OPBI 14:27
PROVIDERS: PCP Internal Medicine; Visit Provider Internal Medicine
DX: N64.4 Mastodynia (principal); N63.10 Unspecified lump in the right breast, unspecified quadrant
CPT/HCPCS: 76642; 77061; 77063; 77066; G0279

== ENCOUNTER 2022-02-10 01:31 | Emergency (ER) | payer MEDICAID, SELFPAY ==
[2022-02-10 01:31] VITALS: BP 147/89; PULSE 95; RESP 20; TEMP 36.2; O2SAT 97; BMI 51.5
--- NOTE | 2022-02-10 01:39 | CT_ITS ---
STUDY: CT ABDOMEN AND PELVIS WITHOUT CONTRAST REASON FOR EXAM: Female, 36 years old. Pain RADIATION DOSAGE (If Supplied By Facility): CTDIvol = ( 23.44 ) mGy, DLP = ( 1206.60 ) mGycm TECHNIQUE: Transaxial images were obtained from the dome of the diaphragm to the symphysis pubis without oral contrast, and without intravenous contrast. Sagittal and coronal images were reconstructed. Individualized dose optimization techniques were used for this CT. COMPARISON: None. FINDINGS: The visualized lung bases are unremarkable. The visualized portions of the heart are within normal limits. Normal liver. There are surgical clips in the gallbladder fossa consistent with a prior cholecystectomy. Normal spleen. Normal pancreas. Normal bilateral adrenal glands. Normal right kidney. Normal left kidney. There is a small hiatal hernia. Normal small intestine. Normal colon. The appendix is visualized and appears normal. Normal abdominal aorta. Normal inferior vena cava. Normal retroperitoneum. Normal urinary bladder. Normal abdominal wall. Normal osseous structures. CT/Abdomen/Pelvis without Cont IMPRESSION: There is a small hiatal hernia. Electronically Signed: Renetta Hairston MD at 2:58 EST ,
--- NOTE | 2022-02-10 01:40 | EX.ED.DYSGE1 ---
HPI History of Present Illness Chief Complaint: Abd Pain Narrative Narrative: Patient presents with 1 to 2 hours of abdominal pain that woke her up from sleep. She also has bilateral flank pain. No fevers or chills. No cough congestion. She has been having urinary frequency recently. No upper abdominal pain. No nausea vomiting or diarrhea. [facility] Medical History Chronic back pain Degenerative disc disease Depression with anxiety GI problem H/O tinnitus Hearing problem History of gestational diabetes History of pre-eclampsia Migraines Scoliosis Home Medications cephalexin 500 mg capsule 500 mg PO Q6 #12 caps 02/10/22 [Rx Last Taken Unknown] Allergy/AdvReac Type Severity Reaction Status Date / Time Jones And Derivatives Allergy Rash Verified 02/10/22 01:35 Fish Containing Products Allergy Anaphylaxis Verified 02/10/22 01:35 ibuprofen Allergy Other Verified 02/10/22 01:35 hydromorphone HCl AdvReac Vomiting Verified 02/10/22 01:35 [From Dilaudid] metoclopramide HCl AdvReac Vomiting Verified 02/10/22 01:35 [From Reglan] Family History Other Alcoholism Asthma CVA (cerebral vascular accident) Depression Hyperlipemia Hypertension Thyroid disorder Surgical History History of History of cholecystectomy History of mastoidectomy History of placement of ear tubes History of tonsillectomy and adenoidectomy History of tubal ligation Social History Smoking Status: Former smoker Tobacco: How many years used: 15 alcohol intake: current alcohol intake frequency: holidays/special occasions only substance use type: does not use what type of physical activity do you participate in: walking frequency: 5-6 times per week ROS ROS ED ROS Narrative Past medical history: Reviewed, includes chronic back pain, depression anxiety, obesity, scoliosis, migraine headache Medications: Currently she takes no medication Social history: Noncontributory Review of systems: All systems negative except as indicated General: No fever Eyes: No visual changes ENT: No upper airway congestion, normal voice Neck: No neck pain Cardiovascular: No chest pain Respiratory: No shortness of breath or cough Gastrointestinal: As in HPI Genitourinary: No dysuria. She does have urinary frequency Musculoskeletal: Denies myalgias no difficulty with ambulation Skin: No rash Neurological: No memory loss, confusion or any focal weakness Psych: No recent behavioral changes Hematologic: No easy bleeding or easy bruising EXAM Physical Exam Narrative Exam Narrative: Physical exam General: Patient appears somewhat Head: Normocephalic, Atraumatic Eyes: Conjunctiva not pale ENT: Moist mucous membranes Neck: Supple, Nontender, No lymphadenopathy Cardiovascular: Regular rate, Regular rhythm Respiratory: No distress, CTA bilaterally Abdomen: Soft, mostly lower abdominal pain both left lower quadrant and right lower quadrant. She has some CVA tenderness also. Back: Nontender, Normal Inspection. Extremities: Nontender, No edema Skin: Normal color, No rash Neurological: Alert, Normal Strength, Normal Sensation Psychological: Normal affect Const Vital Signs: 02/10/22 01:31 Temperature 97.1 F L Temperature Source Temporal Pulse Rate 95 Respiratory Rate 20 H Blood Pressure 147/89 H Blood Pressure Mean 108 Pulse Ox 97 Oxygen Delivery Method Room Air MDM MDM MDM Narrative Medical decision making narrative: Patient's work-up is unremarkable. She appears well, does have some leuk esterases and some RBCs and blood she could have passed a kidney stone when she could have an early UTI which I will treat. Otherwise she appears well and I will discharge in stable condition Lab Data Labs: Laboratory Results - last 24 hr 02/10/22 02/10/22 02/10/22 01:50 01:50 02:10 WBC 5.2 RBC 5.29 Hgb 14.4 Hct 44.3 MCV 83.7 MCH 27.2 MCHC 32.5 RDW Std Deviation 45.[address] Coeff of [address] 15.0 H Plt Count 234 MPV 10.0 Immature Gran % (Auto) 0.400 Neut % (Auto) 55.6 Lymph % (Auto) 30.0 [place] % (Auto) 11.1 H Eos % (Auto) 2.3 Baso % (Auto) 0.6 Absolute Neuts (auto) 2.9 Absolute Lymphs (auto) 1.57 Nucleated RBC % 0 Sodium 139 Potassium 3.4 L Chloride 106 Carbon Dioxide 24.0 Anion Gap 9 BUN 7 Creatinine 0.71 Estim Creat Clear Calc 100.57 Est GFR (MDRD) Af Amer 119 Est GFR (MDRD) Non-Af 98 BUN/Creatinine Ratio 9.9 L Glucose 124 H Calcium 8.9 Total Bilirubin 0.60 AST 21 ALT 38 Alkaline Phosphatase 70 Total Protein 7.6 Albumin 3.6 Globulin 4.0 Albumin/Globulin Ratio 0.9 Lipase 38 L Urine Color Yellow Urine Clarity Clear Urine pH 6.0 Ur Specific [place] 1.015 Urine Protein 30 H Urine Glucose (UA) Normal Urine Ketones Negative Urine Occult Blood 250 H Urine Nitrite Negative Urine Bilirubin Negative Urine Urobilinogen Normal Ur Leukocyte Esterase 25 H Urine RBC 5-10 SEEN Urine WBC 0-5 SEEN Ur Squamous Epith Cells 0-5 SEEN Urine Bacteria 1+ Urine Mucus 0 SEEN Radiography Diagnostic Testing: Clinical Impression(s) from Imaging Studies Abdomen/Pelvis CT 02/10/22 01:39 IMPRESSION: There is a small hiatal hernia. Electronically Signed: Renetta Hairston MD at 2:58 EST Reading Location ID and State: [address] [place] [address] Tel , Service support , Discharge Plan Triage Chief Complaint: Abd Pain ED Provider: Isaias Polanco Dx/Rx/DC Orders Clinical Impression: Hematuria, Abdominal pain Instructions: Abdominal Pain Prescriptions: New cephalexin 500 mg capsule 500 mg PO Q6 Qty: 12 0RF Primary Care Provider: Iza Douglas Referrals: Iza Douglas MD [Primary Care Provider] - 3-5 Days Disposition Disposition: Home, Self Care
[2022-02-10 01:54] LABS: Absolute Lymphocyte Count 1.57 X10^3/uL (0.83-4.51); Absolute Neutrophil Count 2.9 X10^3/uL (2.0-7.7); Basophil# 0.03 X10^3/uL; Basophil% 0.6 % (0-1); Eosinophil# 0.12 X10^3/uL; Eosinophils% 2.3 % (0-5); Hematocrit 44.3 % (37-47); Hemoglobin 14.4 g/dL (12.0-15.0); Lymphocyte # 1.57 X10^3/ul (0.83-4.51); Mean Corp Hgb Conc 32.5 g/dL (32-36); Mean Corpuscular Hgb 27.2 pg (27.0-32.0); Mean Corpuscular Volume 83.7 fL (81-99); Monocyte# 0.58 X10^3/uL; Monocyte% 11.1 % (0-10); NRBC Flagged by Analyzer 0 % (0-5); Neutrophil # 2.91 X10^3/uL (2.7-7.7); Neutrophil % 55.6 % (47-70); Platelet Count 234 K/mm3 (150-450); RBC Distribution Width SD 45.4 fl (35.1-43.9); Red Blood Count 5.29 M/mm3 (4.2-5.4); White Blood Count 5.2 K/mm3 (4.4-11.0)
[2022-02-10] MEDS: Morphine 4 MG/ML Syringe IV (01:57)
[2022-02-10] MEDS: 0.9% Normal Saline 1,000 ML 1000 ML IV (01:57)
[2022-02-10] MEDS: Ondansetron 4 MG/2 ML Vial IV (01:58)
[2022-02-10 02:10] LABS: ALB/GLOB Ratio 0.9 RATIO (0.9-2.4); AST(SGOT) 21 U/L (15-37); Alanine Aminotransfer ALT/SGPT 38 U/L (13-56); Albumin, Serum 3.6 g/dL (3.2-5.0); Alkaline Phosphatase 70 U/L (45-117); Anion Gap 9 (5-15); BUN 7 mg/dL (7-18); BUN/Creat Ratio 9.9 RATIO (10-20); Calcium,Total 8.9 mg/dL (8.5-10.1); Chloride 106 mmol/L (98-107); Creatinine, Serum 0.71 mg/dL (0.55-1.02); EST Glomerular Filtration Rate 98 mL/min (>60); Est Glom Filt Rate - Afr Amer 119 mL/min (>60); Estimated Creatinine Clearance 100.57 ml/min; Glucose 124 mg/dL (74-106); Lipase 38 U/L (73-393); Potassium 3.4 mmol/L (3.5-5.1); Protein, Total 7.6 g/dL (6.4-8.2); Sodium Level 139 mmol/L (136-145)
[2022-02-10 02:15] LABS: Color, Urine Yellow (Yellow); Glucose, Dipstick Normal (Normal); Ketone-Dipstick Negative (Negative); Leukocyte Esterase-Dipstick 25 /ul (Negative); Mucous, Urine 0 SEEN /hpf (<or=2+); Nitrite-Dipstick Negative (Negative); Occult Blood-Urine 250 /ul (Negative); Protein-Dipstick 30 mg/dl (Negative); Specific Gravity, Urine 1.015 (1.002-1.030); Urine Bilirubin Dipstick Negative (Negative); Urine Clarity Clear (Clear); Urine Urobilinogen Normal (Normal)
[2022-02-10 02:21] LABS: Bacteria 1+ /hpf (None Seen); Red Blood Cells-Urine 5-10 SEEN /hpf (0-5); Squamous Epithelial Cells - UA 0-5 SEEN /hpf (5-10); White Blood Cells 0-5 SEEN /hpf (0-5)
[2022-02-10] MEDS: Dicyclomine 20 MG/2 ML Vial IM (03:31)
== END 2022-02-10 03:35 | disposition home or self-care (01) ==
PROVIDERS: Emergency Provider Emergency Medicine; PCP Internal Medicine; Visit Provider Emergency Medicine
DX: R31.9 Hematuria, unspecified (principal); R10.9 Unspecified abdominal pain; M54.9 Dorsalgia, unspecified; Z87.891 Personal history of nicotine dependence; R35.0 Frequency of micturition; G89.29 Other chronic pain
CPT/HCPCS: 74176; 80053; 81001; 83690; 85025; 96361; 96372; 96374; 96375; 99284; J7030; A4216; J2405

== ENCOUNTER 2022-04-23 08:56 | Emergency (ER) | payer OTHER, MEDICAID, SELFPAY ==
[2022-04-23 08:58] VITALS: BP 148/86; PULSE 80; RESP 14; TEMP 35.7; O2SAT 99; BMI 50.2
--- NOTE | 2022-04-23 09:17 | EDS_ITS ---
HPI History of Present Illness HPI Narrative: Presents with pain in her left forearm and elbow that began after a fall today. Patient states she slipped and fell. Patient denies any head injury or loss of consciousness. Patient admits to some numbness and tingling into her left hand. Patient denies any weakness. Patient describes her pain as constant aching but sharp at times. Patient states her pain is worse with certain movements. Patient states it is better with rest. Patient states her pain does radiate up into her shoulder. Chief Complaint: Upper Extremity Injury Informant: patient Occured/Mechanism Mechanism/Context: Yes fall Onset/Context/Timing Onset: Today Context: Sudden Onset Timing: Continuous Quality of Pain: Sharp (At times) and Aching Location: Left forearm and left elbow Worsened by: Movement Relieved by: Rest Associated Symptoms Associated Symptoms: Negative for Parasthesia, Weakness or Loss of Funtion [facility] Medical History Chronic back pain Degenerative disc disease Depression with anxiety GI problem H/O tinnitus Hearing problem History of gestational diabetes History of pre-eclampsia Migraines Scoliosis Allergy/AdvReac Type Severity Reaction Status Date / Time [place] And Derivatives Allergy Rash Verified 04/23/22 08:57 Fish Containing Products Allergy Anaphylaxis Verified 04/23/22 08:57 ibuprofen Allergy Other Verified 04/23/22 08:57 hydromorphone HCl AdvReac Vomiting Verified 04/23/22 08:57 [From Dilaudid] metoclopramide HCl AdvReac Vomiting Verified 04/23/22 08:57 [From Reglan] Family History Other Alcoholism Asthma CVA (cerebral vascular accident) Depression Hyperlipemia Hypertension Thyroid disorder Surgical History History of History of cholecystectomy History of mastoidectomy History of placement of ear tubes History of tonsillectomy and adenoidectomy History of tubal ligation Social History Smoking Status: Former smoker Tobacco: How many years used: 15 alcohol intake: current alcohol intake frequency: holidays/special occasions only substance use type: does not use what type of physical activity do you participate in: walking frequency: 5-6 times per week ROS ROS ED Constitutional Constitutional ED: Denies chills or fever(s) Eyes Eyes: Denies blurry vision or change in vision ENT ENT ED: Denies rhinorrhea or sore throat Cardiovascular Cardiovascular: Denies chest pain or palpitations Respiratory/Chest Respiratory/Chest: Denies cough or dyspnea Gastrointestinal Gastrointestinal: Denies nausea or vomiting Genitourinary Genitourinary ED: Denies dysuria or hematuria Musculoskeletal Musculoskeletal: Reports back pain; Denies neck pain Integumentary Denies abscess or rash Neurologic Neurologic: Denies headache(s) or weakness Allergic/Immunologic Allergic/Immunologic ED: Denies mouth swelling or urticaria EXAM Physical Exam Const Vital Signs: 04/23/22 08:58 Temperature 96.2 F L Temperature Source Temporal Pulse Rate 80 Respiratory Rate 14 Blood Pressure 148/86 H Blood Pressure Mean 106 Pulse Ox 99 Oxygen Delivery Method Room Air Positive well nourished, well developed and obese General Appearance ED: well developed and NAD Nutritional Appearance: obese HEENT Reports moist mucous membranes Neck full ROM and supple Extremity Extremity Narrative: There is tenderness over the left forearm and left elbow. There is no bony crepitance or step-off. There is no obvious deformity. Range of motion was limited in all motions of the left elbow and forearm secondary to pain. Radial pulses are equal bilaterally. Sensation was intact to light touch in the radial, median, and ulnar areas. Strength is 5/5 in the radial, median, and ulnar areas. Neuro oriented x3, CN's II-XII intact bilaterally, moves all extremities, no focal motor deficits and no sensory deficits noted Sensorium / Orientation: alert Motor Exam: strength 5/5 throughout Psych mental status grossly normal MDM MDM MDM Narrative Medical decision making narrative: Patient was given a dose of [place] here. Differential diagnosis includes fracture, contusion, and sprain. X-rays of the left forearm and left elbow will be obtained to assess for fracture. Radiography Diagnostic Testing: X-rays of the left forearm were obtained. There are 2 views. On my independent interpretation, there is no acute fracture. There is no dislocation. There is no soft tissue swelling. Radiologist also interpreted the x-rays and agrees. X-rays of the left elbow were obtained. There are 3 views. On my independent interpretation, there is no acute fracture. There is no dislocation. There is no joint effusion suggesting occult fracture. There is no soft tissue swelling. Radiologist also interpreted the x-rays and agrees. Treatment and Re-Evaluation Narrative: Patient was advised of her findings. Patient was advised that this most likely a contusion. Patient was instructed to ice and elevate the left forearm and elbow. Patient was instructed to take Tylenol as needed for pain. Patient was instructed to do range of motion exercises. Patient was instructed to follow-up with her primary care physician in 5 to 7 days. Patient understood and was agreeable with the plan. All questions were answered. Discharge Plan Triage Chief Complaint: Upper Extremity Injury ED Provider: Prabhu Albarran Dx/Rx/DC Orders Clinical Impression: Contusion of left elbow and forearm, Fall Instructions: ED Contusion, Upper Extremity Primary Care Provider: Iza Douglas Referrals: Iza Douglas MD [Primary Care Provider] - 1-2 Weeks Disposition Disposition: Home, Self Care
--- NOTE | 2022-04-23 09:25 | RAD_ITS ---
STUDY: X-RAY - LEFT ELBOW REASON FOR EXAM: Female, 36 years old. Injury TECHNIQUE: 3 view(s) of the elbow. COMPARISON: None. FINDINGS: There is no evidence of fracture or dislocation. There is a 1 cm exostosis of the distal humerus which likely represents an osteochondroma. There are no radiodense foreign bodies. RAD/Elbow min 3 Views IMPRESSION: No fracture or dislocation in the left elbow. 1 cm exostosis of the distal humerus which likely represents an osteochondroma.. Electronically Signed: Good De La Rosa MD at 9:42 EST ,
--- NOTE | 2022-04-23 09:25 | RAD_ITS ---
STUDY: X-RAY - LEFT RADIUS AND ULNA REASON FOR EXAM: Female, 36 years old. Injury TECHNIQUE: 2 view(s) of the forearm. COMPARISON: None. FINDINGS: There is no evidence of fracture or dislocation. There are no significant degenerative changes. There are no radiodense foreign bodies. RAD/Forearm 2 Views IMPRESSION: No fracture or dislocation. Electronically Signed: Good De La Rosa MD at 9:43 EST ,
[2022-04-23] MEDS: HYDROcodone Bitartrate/Apap 5/325 Tablet PO (09:34)
[2022-04-23 09:54] VITALS: BP 125/76; PULSE 62; RESP 15; O2SAT 99
== END 2022-04-23 09:56 | disposition home or self-care (01) ==
LOC: ED 09:49
PROVIDERS: Emergency Provider Emergency Medicine; PCP Internal Medicine; Visit Provider Emergency Medicine
DX: S50.12XA Contusion of left forearm, initial encounter (principal); Z87.891 Personal history of nicotine dependence; E66.9 Obesity, unspecified; W01.0XXA Fall on same level from slipping, tripping and stumbling without subsequent striking against object, initial encounter
CPT/HCPCS: 73080; 73090; 99283

== ENCOUNTER 2023-03-21 09:24 | Emergency (ER) | payer MEDICAID, SELFPAY ==
[2023-03-21 09:25] VITALS: BP 154/88; PULSE 86; RESP 14; TEMP 36.8; O2SAT 98; BMI 49.1
--- NOTE | 2023-03-21 10:57 | VDLE_ITS ---
Reason For Study: PAIN RIGHT LEFT GSV is normal. GSV is normal. CFV is compressible, spontaneous, phasic, CFV is compressible, spontaneous, phasic, competent and demonstrates normal competent, and demonstrates normal augmentation. augmentation. FV is compressible, spontaneous, phasic, FV is compressible, spontaneous, phasic, competent and demonstrates normal competent and demonstrates normal augmentation. augmentation. POP V is compressible, spontaneous, phasic, POP V is compressible, spontaneous, phasic, competent and demonstrates normal competent and demonstrates normal augmentation. augmentation. T/P Trunk is compressible. T/P Trunk is compressible. PTV is compressible. PTV is compressible. RT PerV is compressible. LT PerV is compressible. Procedure This is a venous duplex using B-mode, color flow and spectral Doppler. Exam performed portable in ED. The study was technically difficult. Due to obesity. A preliminary report was called and/or faxed to ED (Dr. Gilbert). VL/Venous Duplex US - Joel Extrem Interpretation Summary Deep veins of the bilateral lower extremities are patent and compressible segme ntally. There is no evidence of bilateral lower extremity deep vein thrombosis. The bilateral great saphenous veins appear patent and compressible segmentally. Ordering Physician: Ga Oro Referring Physician: KACEY PCP Performed By: Lisa Holden, ZAKI, RVT
--- NOTE | 2023-03-21 11:00 | EX.ED.DYSGE1 ---
HPI History of Present Illness Chief Complaint: Edema Narrative Narrative: 37-year-old female presenting for evaluation of bilateral lower extremity swelling. She states is been like this for about a week. She states it started after she had her menstrual cycle. She states that she would typically have this after her menstrual cycle, but she states that her leg swelling usually goes away. Patient states that she might have some mild dyspnea as well. She states it does not really affect her. She is concerned it may be a part of her anxiety. She has not a cough, fever, chills, myalgias. She does not think she is ill. She states she called her primary care physician for an office visit but was sent to the ER. Patient states she had some nausea and 1 episode of vomiting yesterday morning with medications but feels okay now. PFSH [facility] Medical History Acute frontal sinusitis, unspecified Acute pharyngitis, unspecified Chronic back pain Contact with and (suspected) exposure to other viral communicable diseases Degenerative disc disease Depression with anxiety GI problem H/O tinnitus Hearing problem History of gestational diabetes History of pre-eclampsia Migraines Scoliosis Home Medications ondansetron 4 mg disintegrating tablet 4 mg PO Q8H PRN PRN Nausea #10 tabs 03/21/23 [Rx Last Taken Unknown] Allergy/AdvReac Type Severity Reaction Status Date / Time [place] And Derivatives Allergy Rash Verified 04/23/22 08:57 Fish Containing Products Allergy Anaphylaxis Verified 04/23/22 08:57 ibuprofen Allergy Other Verified 04/23/22 08:57 hydromorphone HCl AdvReac Vomiting Verified 04/23/22 08:57 [From Dilaudid] metoclopramide HCl AdvReac Vomiting Verified 04/23/22 08:57 [From Reglan] Family History Other Alcoholism Asthma CVA (cerebral vascular accident) Depression Hyperlipemia Hypertension Thyroid disorder Surgical History History of History of cholecystectomy History of mastoidectomy History of placement of ear tubes History of tonsillectomy and adenoidectomy History of tubal ligation Social History Smoking Status: Current some day smoker tobacco type: cigarettes Tobacco: How many years used: 15 alcohol intake: current alcohol intake frequency: holidays/special occasions only substance use type: does not use what type of physical activity do you participate in: walking frequency: 5-6 times per week ROS ROS ED Constitutional Constitutional ED: Denies chills, fever(s) or sweats Eyes Eyes: Denies blurry vision or change in vision ENT ENT ED: Denies ear pain or sore throat Cardiovascular Cardiovascular: Denies chest pain, palpitations or racing heartbeat Respiratory/Chest Respiratory/Chest: Denies cough, dyspnea or sputum Gastrointestinal Gastrointestinal: Reports nausea and vomiting; Denies abdominal pain, constipation or diarrhea Genitourinary Genitourinary ED: Denies dysuria, hematuria or urinary frequency Musculoskeletal Musculoskeletal: Denies arthralgias, myalgias or neck pain Integumentary Denies abscess, Abrasions or rash Neurologic Neurologic: Denies headache(s), paresthesias or weakness Psychiatric Psychiatric: Reports other Details: Lower extremity edema ; Denies anxiety, depression, suicidal ideation or suicidal thoughts Endocrine Endocrinology: Denies polydipsia or polyuria EXAM Physical Exam Const Vital Signs: 03/21/23 09:25 03/21/23 09:27 03/21/23 12:52 Temperature 98.2 F Temperature Source Temporal Pulse Rate 86 88 Respiratory Rate 14 16 Respiratory Effort Non-Labored Short of Breath Blood Pressure 154/88 H 150/87 H Blood Pressure Mean 110 108 Pulse Ox 98 99 Oxygen Delivery Method Room Air Positive well nourished General Appearance ED: NAD; Negative for pallor HEENT Reports moist mucous membranes Eyes PERRL and EOMs intact bilaterally Chest Wall inspection of chest normal Resp normal respiratory effort and clear to auscultation bilaterally Auscultation: Negative for rales, rhonchi or wheezes Cardio regular rate and regular rhythm GI normal to inspection, nondistended, normoactive bowel sounds Extremity Extremity Narrative: Pitting edema. No cords palpated. Compartments are soft. Neurovascular intact. General Extremety ED: Yes edema and tenderness General Extremity: edema Psych mental status grossly normal Skin no rashes or lesions noted and no wounds General Skin Exam: Negative for jaundice or pallor MDM MDM MDM Narrative Medical decision making narrative: Patient reports that she has lower extreme edema which is somewhat chronic. She also reports she had a normal cardiac workup as of the end of last year the beginning of this year and states that she had a normal echocardiogram and cardiac clearance. Patient states that she has had some lower extremity edema which is not new and follows her menstrual cycles. This seems to be a little more persistent. She had some mild nausea and 1 episode of vomiting. She also states she is dyspneic but she feels like this is part of her anxiety. Is not having chest pain. She states she feels pretty calm now. We will check a BMP to make sure that her renal function is normal. Patient is concerned for DVT with right greater than left lower extremity pain however there is no evidence of this on exam. We will obtain DVT studies. BMP shows normal electrolytes, renal function. Chest x-ray on my interpretation shows no acute process. The radiologist interprets this and agrees. DVT studies of bilateral lower extremities are negative. This point I feel the patient is stable at home. Return precautions were discussed. Patient requested a work note for tomorrow and she is provided. impression 1. Bilateral lower extremity edema 2. Dyspnea 3. Nausea Lab Data Labs: Laboratory Results - last 24 hr 03/21/23 10:40 Sodium 141 Potassium 4.3 Chloride 108 H Carbon Dioxide 26.0 Anion Gap 7 BUN 10 Creatinine 0.65 Estim Creat Clear Calc 108.78 Est GFR (MDRD) Af Amer 131 Est GFR (MDRD) Non-Af 108 BUN/Creatinine Ratio 15.4 Glucose 105 Calcium 8.8 Radiography Diagnostic Testing: Clinical Impression(s) from Imaging Studies Venous Doppler Study 03/21/23 10:57 Interpretation Summary Deep veins of the bilateral lower extremities are patent and compressible segmentally. There is no evidence of bilateral lower extremity deep vein thrombosis. The bilateral great saphenous veins appear patent and compressible segmentally. Ordering Physician: Ga Oro Referring Physician: NO PCP Performed By: Lisa Holden, ZAKI, RVT Chest X-Ray 03/21/23 11:08 IMPRESSION: Normal x-ray examination of the chest. Electronically Signed: Kimo Alfred MD at 11:25 EST , Discharge Plan Triage Chief Complaint: Edema ED Provider: Ga Oro Dx/Rx/DC Orders Instructions: ED Peripheral Edema, Unilateral Prescriptions: New ondansetron 4 mg tablet,disintegrating 4 mg PO Q8H PRN PRN (Reason: Nausea) Qty: 10 0RF Stand Alone Forms: ED Work / School Excuse Primary Care Provider: Care Physician,No Primary Referrals: Care Physician,No Primary [Primary Care Provider] - Disposition Disposition: Home, Self Care Discharge Date/Time: 03/21/23 12:53
--- NOTE | 2023-03-21 11:08 | RAD_ITS ---
STUDY: X-RAY CHEST REASON FOR EXAM: Female, 37 years old. Dyspnea TECHNIQUE: Single AP portable view of the chest. COMPARISON: None. FINDINGS: The lungs are clear and expanded. There is no demonstrated pleural abnormality. Normal size heart. Normal mediastinum and stuart. Normal visualized pulmonary arteries. Normal visualized aortic arch and descending thoracic aorta. Mild dextroscoliosis Normal visualized ribs, clavicles, and shoulders. There is no demonstrated abnormality of the visualized soft tissue structures of the upper abdomen. RAD/Chest 1 View (Portable) IMPRESSION: Normal x-ray examination of the chest. Electronically Signed: Kimo Alfred MD at 11:25 EST ,
[2023-03-21 11:25] LABS: Anion Gap 7 (5-15); BUN 10 mg/dL (7-18); BUN/Creat Ratio 15.4 RATIO (10-20); Calcium,Total 8.8 mg/dL (8.5-10.1); Chloride 108 mmol/L (98-107); Creatinine, Serum 0.65 mg/dL (0.55-1.02); EST Glomerular Filtration Rate 108 mL/min (>60); Est Glom Filt Rate - Afr Amer 131 mL/min (>60); Estimated Creatinine Clearance 108.78 ml/min; Glucose 105 mg/dL (74-106); Potassium 4.3 mmol/L (3.5-5.1); Sodium Level 141 mmol/L (136-145)
[2023-03-21 12:52] VITALS: BP 150/87; PULSE 88; RESP 16; O2SAT 99
== END 2023-03-21 12:53 | disposition home or self-care (01) ==
PROVIDERS: Emergency Provider Student in an Organized Health Care Education/Training Program; Visit Provider Student in an Organized Health Care Education/Training Program
DX: R60.0 Localized edema (principal); R11.2 Nausea with vomiting, unspecified; F17.210 Nicotine dependence, cigarettes, uncomplicated; F41.9 Anxiety disorder, unspecified; R06.00 Dyspnea, unspecified
CPT/HCPCS: 71045; 80048; 93970; 99283

== ENCOUNTER 2023-08-27 17:43 | Emergency (ER) | payer MEDICAID, SELFPAY ==
[2023-08-27 17:46] VITALS: BP 151/92; PULSE 115; RESP 18; TEMP 36.2; O2SAT 95; BMI 53.2
--- NOTE | 2023-08-27 17:49 | EKG12_ITS ---
Test Reason : CP Blood Pressure : / mmHG Vent. Rate : 079 BPM Atrial Rate : 079 BPM P-R Int : 140 ms QRS Dur : 090 ms QT Int : 382 ms P-R-T Axes : 037 -14 053 degrees QTc Int : 438 ms Normal sinus rhythm Normal ECG Confirmed by GA PINEDO, BROCK ([id number]), publications editor SHAE PASCUAL ([id number]) on 08/30/2023 6:18:20 AM Referred By: Confirmed By:BRUCE KOROMA MD
[2023-08-27 18:24] LABS: Absolute Lymphocyte Count 2.15 X10^3/uL (0.83-4.51); Absolute Neutrophil Count 5.2 X10^3/uL (2.0-7.7); Basophil# 0.05 X10^3/uL; Basophil% 0.6 % (0-1); Eosinophil# 0.13 X10^3/uL; Eosinophils% 1.6 % (0-5); Hematocrit 39.2 % (37-47); Hemoglobin 12.7 g/dL (12.0-15.0); Lymphocyte # 2.15 X10^3/ul (0.83-4.51); Lymphocyte % 27.1 % (19-41); Mean Corp Hgb Conc 32.4 g/dL (32-36); Mean Corpuscular Hgb 27.1 pg (27.0-32.0); Mean Corpuscular Volume 83.6 fL (81-99); Mean Platelet Vol. 9.8 fl (6.2-12.0); Monocyte% 5.1 % (0-10); NRBC Flagged by Analyzer 0 % (0-5); Neutrophil # 5.16 X10^3/uL (2.7-7.7); Neutrophil % 65.2 % (47-70); Platelet Count 282 K/mm3 (150-450); RBC Distribution Width CV 14.3 % (11.6-14.6); RBC Distribution Width SD 42.8 fl (35.1-43.9); Red Blood Count 4.69 M/mm3 (4.2-5.4); White Blood Count 7.9 K/mm3 (4.4-11.0)
--- NOTE | 2023-08-27 18:34 | EDS_ITS ---
HPI History of Present Illness Chief Complaint: Chest Pain Narrative Narrative: 38-year-old female past medical history of depression, on Wellbutrin and Lamictal had a recent increase in her Lamictal from 50 to 100 mg over the last week. She states that over the last 2 days she has had left-sided chest tightness and arm tightness that last about 20 to 30 minutes at a time. It is intermittent over the last few days. She denies any nausea or vomiting, no fevers or chills, no cough, no diaphoresis. No leg swelling. She denies any DVT or PE risk factors. She does not take control pills, but previously she was a smoker but quit a year ago. The last time she had pain was when she called the ambulance. However, dissipated and has not returned since. She states that she has been feeling well, but when it is time for her extended release Lamictal to wear off, she starts feeling improved. [facility] Medical History Contact with and (suspected) exposure to other viral communicable diseases Acute pharyngitis, unspecified Acute frontal sinusitis, unspecified Chronic back pain Depression with anxiety H/O tinnitus Degenerative disc disease Scoliosis History of pre-eclampsia History of gestational diabetes Hearing problem GI problem Migraines Home Medications ?Medication ?Instructions ?Recorded ?Last Taken ?Type ondansetron 4 mg disintegrating 4 mg PO Q8H PRN PRN Nausea #10 tabs 03/21/23 Unknown Rx tablet Allergy/AdvReac Type Severity Reaction Status Date / Time [place] And Derivatives Allergy Rash Verified 08/27/23 17:46 Fish Containing Products Allergy Anaphylaxis Verified 08/27/23 17:46 ibuprofen Allergy Other Verified 08/27/23 17:46 hydromorphone HCl (From AdvReac Vomiting Verified 08/27/23 17:46 Dilaudid) metoclopramide HCl (From AdvReac Vomiting Verified 08/27/23 17:46 Reglan) Family History Other Alcoholism Asthma CVA (cerebral vascular accident) Depression Hyperlipemia Hypertension Thyroid disorder Surgical History History of placement of ear tubes History of tubal ligation History of mastoidectomy History of tonsillectomy and adenoidectomy History of History of cholecystectomy Social History Smoking Status: Current some day smoker tobacco type: cigarettes Tobacco: How many years used: 15 alcohol intake: current alcohol intake frequency: holidays/special occasions only substance use type: does not use what type of physical activity do you participate in: walking frequency: 5-6 times per week ROS ROS ED ROS Narrative Constitutional: No fever, no chills. HEENT: No sore throat. No neck pain. No loss of vision. No rhinorrhea. Cardiovascular: Positive left chest tightness chest pain. No palpitations. No pedal edema. Respiratory: No cough, no shortness of breath. Abdominal: No abdominal pain. No nausea. No vomiting. Genitourinary: No dysuria. No hematuria. Musculoskeletal: No myalgias. No arthralgias. Neurologic: No headaches. No dizziness. No lightheadedness. Skin: No rash. No change in color. Psychiatric: No depression. No anxiety. EXAM Physical Exam Narrative Exam Narrative: Afebrile. Vital signs noted. HEENT: Normocephalic. Atraumatic. PERRL, EOMI. Neck soft and supple. No point tenderness or step off. Cardiovascular: Positive tachycardia no murmurs, rubs, or gallops appreciated. Respiratory: No tachypnea. Lungs clear to auscultation bilaterally. Gastrointestinal: Abdomen soft, nontender, with normoactive bowel sounds. No rebound or guarding. Neurological: Awake. Alert. Nonfocal, nonlateralizing. Skin: No rash. Normal color. No pallor. Musculoskeletal: No pedal edema. Full range of motion extremities. Const Vital Signs: 08/27/23 17:46 08/27/23 17:49 08/27/23 19:43 Temperature 97.1 F L Temperature Source Temporal Pulse Rate 115 H 68 Respiratory Rate 18 16 Blood Pressure 151/92 H 116/57 L Blood Pressure Mean 111 76 Pulse Ox 95 97 Oxygen Delivery Method Room Air Room Air Room Air MDM MDM MDM Narrative Medical decision making narrative: In the differential diagnosis is pulmonary embolism versus ACS versus nonspecific chest pain. I have low suspicion for pneumothorax or pneumonia because the history and physical does not support these diagnoses. RN protocol chest pain orders were entered. I did add a D-dimer although she has low risk factors. EKG interpreted by myself independently demonstrates normal sinus rhythm at 79 bpm without ectopy or acute ST changes. No STEMI. Chest x-ray in 1 view interpreted by myself independently shows no evidence of pneumonia or pneumothorax. I reviewed the radiology report which confirms my independent interpretation. I do not feel antibiotics are indicated. I reviewed her laboratory work and she has normal white count of 7.9 with hemoglobin normal at 12.7, hematocrit 39.2, platelet count normal at 282. D- dimer is negative at 0.28. I feel that she has been essentially ruled out for pulmonary embolism. Her pulse ox is 97% on room air without evidence of hypoxia. Review of her electrolyte panel shows glucose appropriately elevated at 124 with a normal anion gap of 7, BUN of 13 and creatinine 0.80. Initial high-sensitivity troponin is 3. I feel that she could be ruled out with serial enzymes. However, I was approached by the RN that the patient would like to leave AGAINST MEDICAL ADVICE and not wait for her second troponin. She was told of the risk of permanent disability and including ME, stroke, and loss of life and/or limb. She acknowledges an understanding. She was told that she could return to the emergency department at any time. I feel she has the capacity to make this decision to sign out AGAINST MEDICAL ADVICE. Return instructions to the emergency department were reviewed. Disposition is signed out AGAINST MEDICAL ADVICE in stable condition History & Record Review Discussion w/independent historian: Patient Lab Data Attestation: I reviewed the patient's lab results. Labs: Laboratory Results - last 24 hr 08/27/23 08/27/23 18:15 18:30 WBC 7.9 RBC 4.69 Hgb 12.7 Hct 39.2 MCV 83.6 MCH 27.1 MCHC 32.4 RDW Std Deviation 42.[address] 14.3 Plt Count 282 MPV 9.8 Immature Gran % (Auto) 0.400 Neut % (Auto) 65.2 Lymph % (Auto) 27.1 [place] % (Auto) 5.1 Eos % (Auto) 1.6 Baso % (Auto) 0.6 Absolute Neuts (auto) 5.2 Absolute Lymphs (auto) 2.15 Nucleated RBC % 0 D-Dimer Quant (PE/DVT) 0.28 Sodium 138 Potassium 3.8 Chloride 104 Carbon Dioxide 27.0 Anion Gap 7 BUN 13 Creatinine 0.80 Estim Creat Clear Calc 140.86 Est GFR (MDRD) Af Amer 102 Est GFR (MDRD) Non-Af 84 BUN/Creatinine Ratio 16.2 Glucose 124 H Calcium 9.5 Troponin I High Sens 3 Radiography Diagnostic Testing: Clinical Impression(s) from Imaging Studies Chest X-Ray 08/27/23 19:00 IMPRESSION: No radiographic evidence of acute cardiopulmonary disease. Electronically Signed: Marlo Lira MD at 20:03 EDT , Discharge Plan Triage Chief Complaint: Chest Pain ED Provider: Jefferson Mendez Dx/Rx/DC Orders Clinical Impression: Chest pain, Left against medical advice Instructions: ED Chest Pain, Uncertain Cause Prescriptions: No Action ondansetron 4 mg tablet,disintegrating 4 mg PO Q8H PRN PRN (Reason: Nausea) Qty: 10 0RF Primary Care Provider: Care Physician,No Primary Referrals: Prabhu Leyva MD [Med Staff - [employer]] - As soon as possible Care Physician,No Primary [Primary Care Provider] - Print Language: Greek Disposition Disposition: Against Medical Advice
[2023-08-27 18:53] LABS: D-Dimer Quantitative (DVT/PE) 0.28 FEU/ug/m (0.27-0.49)
[2023-08-27 18:54] LABS: Anion Gap 7 (5-15); BUN 13 mg/dL (7-18); BUN/Creat Ratio 16.2 RATIO (10-20); Calcium,Total 9.5 mg/dL (8.5-10.1); Chloride 104 mmol/L (98-107); EST Glomerular Filtration Rate 84 mL/min (>60); Est Glom Filt Rate - Afr Amer 102 mL/min (>60); Estimated Creatinine Clearance 140.86 ml/min; Glucose 124 mg/dL (74-106); Potassium 3.8 mmol/L (3.5-5.1); Sodium Level 138 mmol/L (136-145); Troponin-I HS (w/2H Reflex) 3 pg/mL (3.0-54.0)
--- NOTE | 2023-08-27 19:00 | RAD_ITS ---
INDICATION: chest pain EXAMINATION/TECHNIQUE: X-RAY - portable upright AP chest x-ray COMPARISON: 03/21/2023 FINDINGS: LINES/DEVICES: None. LUNGS: No consolidation, edema or effusion. No pneumothorax. MEDIASTINUM AND CARDIOVASCULAR STRUCTURES: Cardiac silhouette not enlarged. Central airways and mediastinal contour are unremarkable. BONES AND SOFT TISSUES: Stable scoliosis. No acute changes. RAD/Chest 1 View (Portable) IMPRESSION: No radiographic evidence of acute cardiopulmonary disease. Electronically Signed: Marlo Lira MD at 20:03 EDT ,
[2023-08-27 19:43] VITALS: BP 116/57; PULSE 68; RESP 16; O2SAT 97
[2023-08-27 20:21] LABS: Reflex Troponin-HS? (from REC) Y
== END 2023-08-27 20:40 | disposition left against medical advice (07) ==
PROVIDERS: Emergency Provider Emergency Medicine; Visit Provider Emergency Medicine
DX: R07.9 Chest pain, unspecified (principal); Z53.29 Procedure and treatment not carried out because of patient's decision for other reasons; F17.210 Nicotine dependence, cigarettes, uncomplicated; F32.A Depression, unspecified; Z79.899 Other long term (current) drug therapy
CPT/HCPCS: 71045; 80048; 84484; 85025; 85379; 93005; 99283; A4216